=== PATIENT | female | born 1970 | race Caucasian/White ===

== ENCOUNTER → 2022-09-24 07:16 | Outpatient (CLI) | payer BC, SELFPAY ==
[2022-09-24 08:14] LABS: Alanine Aminotransferase 32 IU/L (<35); Albumin 3.7 g/dL (3.5-5.0); Albumin Globulin Ratio 1.5 (1.0-2.8); Alkaline Phosphatase 52 U/L (38-126); Aspartate Aminotransferase 25 IU/L (14-36); BUN Creatinine Ratio 21.9 (6-22); Bilirubin Total 0.3 mg/dL (0.2-1.3); Blood Urea Nitrogen 14 mg/dL (7-17); Carbon Dioxide 28 mmol/L (22-32); Chloride 105 mmol/L (98-107); Estimated Glomerular Filt Rate > 60 mL/min (>60); Globulin 2.4 g/dL (1.7-4.1); Glucose 101 mg/dL (70-100); HEMOLYSIS < 15 (0-50); Potassium 4.2 mmol/L (3.4-5.1); Sodium 138 mmol/L (137-145); Total Protein 6.1 g/dL (6.3-8.2)
== END ==
PROVIDERS: Referring Provider Specialist; Visit Provider Specialist
DX: R00.2 Palpitations (principal); R55 Syncope and collapse
CPT/HCPCS: 36415; 80053; 83735

== ENCOUNTER → 2023-06-30 16:27 | Outpatient (CLI) | payer BC, SELFPAY ==
--- NOTE | 2023-06-30 16:28 | DI.MG.S_ITS ---
BILATERAL DIGITAL SCREENING MAMMOGRAM 3D/2D WITH CAD: 06/30/2023 CLINICAL: Routine screening. Family history of breast cancer. Comparison is made to exam dated: 04/30/2021 mammogram - outside location. There are scattered areas of fibroglandular density in both breasts (category b / 25%-50% glandular tissue). Current study was also evaluated with a Computer Aided Detection (CAD) system. No significant masses, calcifications, or other findings are seen in either breast. There has been no significant interval change. IMPRESSION: NEGATIVE There is no mammographic evidence of malignancy. A 1 year screening mammogram is recommended. Based on Tyrer-Cuzick model (a risk assessment model), the patient's lifetime risk is 24.0% and her 10 year risk is 7.2%. If a patient has an elevated risk, a more comprehensive evaluation should be considered and/or a referral to a genetic counselor. The [employer], [employer], and NCCN Guidelines advise the consideration of Breast MRI as an adjunct to screening mammography in patients whose Lifetime risk to develop breast cancer is 20% or higher. This exam was interpreted at Station ID: [id number]. NOTE: For mammograms, a report in lay terms will be sent to the patient. Approximately 15% of breast malignancies will not be visualized mammographically. In the management of a palpable breast mass, a negative mammogram must not discourage biopsy of a clinically suspicious lesion. Electronically Signed By: Eduar gore/rob:07/01/2023 14:55:15 letter sent: Normal Exam ACR BI-RADS Category 1: Negative 3341F
== END ==
PROVIDERS: PCP Nurse Practitioner; Referring Provider Nurse Practitioner; Visit Provider Nurse Practitioner
DX: Z12.31 Encounter for screening mammogram for malignant neoplasm of breast (principal); Z80.3 Family history of malignant neoplasm of breast
CPT/HCPCS: 77063; 77067

== ENCOUNTER 2023-08-21 06:37 | Day surgery (SDC) | payer BC, SELFPAY ==
[2023-08-21 06:50] VITALS: BP 153/90; PULSE 82; RESP 16; TEMP 36.8; O2SAT 98; BMI 37.9
[2023-08-21] MEDS: LACTATED RINGERS 1,000 ML 84 ML IV (07:08)
--- NOTE | 2023-08-21 07:59 | PM.HP.1 ---
History of Present Illness History of Present Illness Date Patient Seen: 08/21/23 Time Patient Seen: 08:00 Chief complaint: SDC Narrative: first colonoscopy. no symptoms or family history for colon cancer. [facility] Medical History Vasomotor flushing Anxiety Vasovagal syncopes Depression Rosacea Osteoarthritis of right knee Prolactinoma, benign Surgical History Status post cholecystectomy (~1996) Family History Sister Breast cancer Social History household members: spouse Smoking Status: Never smoker alcohol intake: never Meds Home Medications and Allergies Allergies Allergy/AdvReac Type Severity Reaction Status Date / Time No Known Drug Allergies Allergy Verified 08/21/23 06:48 Review of Systems Review of Systems ROS: Yes All systems reviewed with the patient and are negative except as otherwise documented Exam Vital Signs (past 8 hours): - 08/21/23 06:50 Temperature 98.2 F Pulse Rate 82 Respiratory Rate 16 Blood Pressure 153/90 H Pulse Oximetry 98 Oxygen Delivery Method Room Air Oxygen Delivery Method Room Air Const General: cooperative and healthy appearing Nutritional Appearance: overweight HENMT Head: normal to inspection, normocephalic and atraumatic Eyes Sclera: sclerae normal Neck Neck: trachea midline Chest Chest: normal inspection of the chest Resp Effort & Inspection: normal respiratory effort and able to speak in complete sentences Cardio Rate: regular rate Rhythm: regular rhythm GI Palpation: soft Neuro Cognition: normal cognition Psych Mental Status: mental status grossly normal Judgment: judgment good Assessment & Plan Assessment & Plan narrative: colon cancer screening using colonoscopy and anesthesia Time Spent With Patient Time with patient: less than 30 minutes
--- NOTE | 2023-08-21 08:17 | PM.OP.COLON ---
Operative Date/Time/Diagnoses Date of procedure: 08/21/23 Time of procedure: 08:18 Pre-op diagnosis: Colon cancer screening Post-op diagnosis: same Procedure & Clinicians Study performed: Colonoscopy with anesthesia Same procedure as scheduled: Yes Indications: Colon cancer screening Surgeon: Hiwot Vázquez Procedure Notes Procedure in detail: Preop diagnosis: Colon cancer screening Postop diagnosis: Same Operative procedure: Colonoscopy with anesthesia Surgeon: Victorina Vázquez MD Findings: No diverticulosis, no polyps Procedure: Patient placed in lateral position. Rectal exam performed showing hemorrhoidal tags but no masses. And normal tone. Scope was then inserted into the rectum and advanced to ileocecal valve with minimal difficulty 1 episode of abdominal pressure. Insufflation extraction of the scope and the above findings. Retroflex was included in the rectum. Impression: No polyps, no diverticulosis. Plan: Repeat colonoscopy in 10 years unless otherwise indicated by change in clinical condition or family history Specimen(s): none sent Complications: none Impression: Normal colonoscopy. No polyps, no diverticulosis Post-procedure Recommendations: Colonoscopy in 10 years Follow up: as needed Disposition: PACU
[2023-08-21 08:21] VITALS: BP 104/65; PULSE 74; RESP 15; TEMP 36.1; O2SAT 96
[2023-08-21 08:25] VITALS: BP 108/67; PULSE 71; RESP 14; O2SAT 96
[2023-08-21 08:30] VITALS: BP 106/66; PULSE 81; RESP 14; O2SAT 96
[2023-08-21 08:33] VITALS: BP 116/71; PULSE 74; RESP 21; TEMP 36.1; O2SAT 95
[2023-08-21 08:40] VITALS: BP 132/83; PULSE 67; RESP 16; TEMP 36.1; O2SAT 97
== END 2023-08-21 09:07 | disposition home or self-care (01) ==
PROVIDERS: PCP Nurse Practitioner; Referring Provider Surgery; Visit Provider Surgery
PROC: 0DJD8ZZ Inspection of Lower Intestinal Tract, Via Natural or Artificial Opening Endoscopic (ICD-10-PCS; CPT 45378; principal; 2023-08-21 07:45)
DX: Z12.11 Encounter for screening for malignant neoplasm of colon (principal)
CPT/HCPCS: 45378; J2704

== ENCOUNTER → 2024-09-02 06:55 | Outpatient (CLI) | payer BC, SELFPAY ==
[2024-09-02 08:13] LABS: Add Manual Diff / Slide Review NO; Basophils Absolute Auto 0 /uL (0-100); Basophils Percent Auto 0.5 % (0-2); Eosinophils Absolute Auto 100 /uL (0-450); Eosinophils Percent Auto 3.2 % (2-4); Hemoglobin 14.3 g/dL (12.0-16.0); Lymphocytes Absolute Auto 1800 /uL (1100-4500); Lymphocytes Percent Auto 40.4 % (25-40); Mean Corpuscular HGB Conc 33.4 % (30-36); Mean Corpuscular Hemoglobin 29.8 PG (26-34); Mean Corpuscular Volume 89.4 fL (80-100); Monocytes Absolute Auto 300 /uL (0-900); Monocytes Percent Auto 6.8 % (3-14); Neutrophils Absolute Auto 2200 /uL (1500-7000); Neutrophils Percent Auto 49.1 % (50-75); Platelet Count 279 X10^3/uL (150-400); White Blood Cell Count 4.5 X10^3/uL (4.5-11.0)
[2024-09-02 08:41] LABS: Alanine Aminotransferase 27 IU/L (<35); Albumin 4.2 g/dL (3.5-5.0); Albumin Globulin Ratio 1.8 (1.0-2.8); Alkaline Phosphatase 63 U/L (38-126); Aspartate Aminotransferase 25 IU/L (14-36); BUN Creatinine Ratio 20.5 (6-22); Bilirubin Total 0.5 mg/dL (0.2-1.3); Blood Urea Nitrogen 15 mg/dL (7-17); Calcium 9.8 mg/dL (8.4-10.2); Carbon Dioxide 28 mmol/L (22-32); Chloride 104 mmol/L (98-107); Estimated Glomerular Filt Rate > 60 mL/min (>60); Globulin 2.4 g/dL (1.7-4.1); Glucose 101 mg/dL (70-100); HEMOLYSIS < 15 (0-50); Potassium 4.6 mmol/L (3.4-5.1); Sodium 138 mmol/L (137-145); Total Protein 6.6 g/dL (6.3-8.2)
[2024-09-02 08:52] LABS: Prolactin 9.8 ng/mL (3.0-18.6)
[2024-09-02 09:07] LABS: TSH w/ Reflex to FT4 1.85 uIU/mL (0.47-4.68)
== END ==
PROVIDERS: PCP Student in an Organized Health Care Education/Training Program; Referring Provider Student in an Organized Health Care Education/Training Program; Visit Provider Student in an Organized Health Care Education/Training Program
DX: D35.2 Benign neoplasm of pituitary gland (principal); R23.2 Flushing; Z79.890 Hormone replacement therapy; N95.1 Menopausal and female climacteric states; E66.812 Obesity, class 2; Z68.36 Body mass index [BMI] 36.0-36.9, adult
CPT/HCPCS: 36415; 80053; 84146; 84443; 85025

== ENCOUNTER → 2025-02-15 10:45 | Outpatient (CLI) | payer BC, SELFPAY ==
--- NOTE | 2025-02-15 10:47 | DI.US.S_ITS ---
PROCEDURE: US PELVIC COMPLETE INDICATIONS: Vaginal bleeding/cramping TECHNIQUE: Real-time scanning was performed of the pelvic organs, with image documentation. Additional endovaginal scanning was necessary due to incomplete visualization of the adnexal and endometrial structures by transabdominal scanning. COMPARISON: None. FINDINGS: Uterus: Uterus is anteverted and normal in size at 7.1 x 2.7 x 3.9 cm. The myometrium is heterogeneous. No discrete uterine fibroids. The endometrium measures 3.9 mm combined thickness. No endometrial mass or fluid. Ovaries: The right ovary measures 1.3 x 0.9 x 1.7 cm, with a calculated ovarian volume of 1.0 cc. The left ovary measures 1.7 x 0.9 x 1.9 cm, with a calculated ovarian volume of 1.5 cc. The ovaries have a normal sonographic appearance. Less than 12 follicles can be seen in each ovary. No adnexal masses are seen. Other: No pathologic free abdominal or pelvic fluid. IMPRESSION: Unremarkable ultrasound examination of uterus and bilateral ovaries. No finding to explain patient's symptoms. We strive to produce accurate, complete, and clear reports of imaging services. To assist us in improving patient care, this report was composed using standard report templates and voice recognition software. Therefore, it may contain abnormal punctuation, insertions and/or omissions. Occasional wrong-word or sound-alike substitutions may occur. Though we review the report and make efforts to correct it, we do recommend that the report be read carefully in proper context to recognize any text inaccuracies. Dictated by: Carson Hardin M.D. on 02/15/2025 at 15:42 Approved by: Carson Hardin M.D. on 02/15/2025 at 15:43
== END ==
LOC: US 10:46
PROVIDERS: PCP Student in an Organized Health Care Education/Training Program; Referring Provider Student in an Organized Health Care Education/Training Program; Visit Provider Student in an Organized Health Care Education/Training Program
DX: N93.9 Abnormal uterine and vaginal bleeding, unspecified (principal)
CPT/HCPCS: 76830; 76856

== ENCOUNTER → 2025-04-26 07:10 | Outpatient (CLI) | payer BC, SELFPAY ==
[2025-04-26 08:05] LABS: Cholesterol 178 mg/dL (140-199); HDL Cholesterol 69 mg/dL (40-60); LDL Cholesterol Calculated 90 mg/dL (<100); Triglycerides 93 mg/dL (35-150)
== END ==
PROVIDERS: PCP Student in an Organized Health Care Education/Training Program; Referring Provider Student in an Organized Health Care Education/Training Program; Visit Provider Student in an Organized Health Care Education/Training Program
DX: Z13.220 Encounter for screening for lipoid disorders (principal)
CPT/HCPCS: 36415; 80061

== ENCOUNTER → 2025-05-30 15:56 | Outpatient (CLI) | payer BC, SELFPAY ==
--- NOTE | 2025-05-30 15:57 | DI.MG.S_ITS ---
MM screening mammo BI: 05/30/2025. BI-RADS: 1 CLINICAL: 54-year old female for bilateral screening mammogram. Tyrer-Cuzick lifetime risk of 20.6%. Current reported family history of breast cancer: maternal grandmother and sister. PRIOR EXAMS 06/30/2023, Outside prior - 04/30/2021. MAMMOGRAPHY TECHNIQUE: 2D and 3D (tomosynthesis) digital mammographic views obtained, with additional images as needed for full coverage. Current study was also evaluated with a Computer Aided Detection (CAD) system. DENSITY B. There are scattered areas of fibroglandular density. MAMMOGRAPHY FINDINGS Bilateral: No suspicious mass, asymmetry, microcalcification, or other abnormality seen. IMPRESSION: * No evidence of malignancy. RECOMMENDATIONS Bilateral * According to the Tyrer-Cuzick Risk Assessment Model, based on the information provided your patient has a greater than 20% lifetime risk for developing breast cancer. Consider supplemental screening with breast MRI and participation in a high risk screening program. * Annual screening mammography. OVERALL ASSESSMENT CATEGORY BI-RADS-1: Negative. The [employer] recommends annual screening mammography beginning at age 40 for women with average risk of breast cancer. ELECTRONICALLY SIGNED: Elysia Sanchez M.D. on 06/06/2025 at 02:50:52 AM PT Interpreting Station ID: [id number]
== END ==
LOC: MAMMO 15:57
PROVIDERS: PCP Student in an Organized Health Care Education/Training Program; Referring Provider Student in an Organized Health Care Education/Training Program; Visit Provider Student in an Organized Health Care Education/Training Program
DX: Z12.31 Encounter for screening mammogram for malignant neoplasm of breast (principal); Z85.3 Personal history of malignant neoplasm of breast; Z80.3 Family history of malignant neoplasm of breast
CPT/HCPCS: 77063; 77067